=== PATIENT | female | born 1930 | race Two or more races ===

== ENCOUNTER → 2019-05-07 | Day surgery (SDC) | payer MEDICARE ==
[~2019-05-07] MED LIST: ASPIR 8181 MG PO; BUPIVACAINE 0.25%/EPI 30ML SDV INJ ONE; CALCIUM 600 +1 EAC2 PO; CLOPIDOGREL75 MG PO; COLESTIPOL PO; DEXAMETHASONE SOD PHOS INJ 4 MG/ML VIAL ONE; DIOVAN HCT 3201 EAC1 PO; FENTANYL CITRATE/PF 100MCG/2 ML INJ ONE; GABAPENTIN300 MG PO; LIDOCAINE HCL 2% JELLY 5 ML TUBE ONE; LIDOCAINE HCL 2% LOCAL INJ 5 ML SDV VIAL INJ ONE; MELATONIN5 M2 PO; NAPROSYN500 MG PO; NORCO 5-325 TA1 EACH PO; ONDANSETRON HCL INJ 2MG/ML 2ML 2 MG/ML VIAL ONE; PROPOFOL IV EMULSION 10 MG/ML 20 ML VIAL ONE; RANITIDINE HCL150 MG PO; ROCURONIUM BROMIDE 10 MG/ML 5ML VIAL ONE; SEVOFLURANE INHAL SOLN 250 ML PEN BTL ONE; SIMVASTATIN40 MG PO
--- OUTSIDE RECORDS SUMMARY | 2019-05-07 06:55 | XMS REPORT ---
Author Author [facility] Address Unknown Phone Unavailable Care Team Providers Care Business Taxes Specialist Name Role Phone Unavailable Unavailable Payers Payer Name Policy Type Policy Number Effective Date Expiration Date Problems This patient has no known problems. Allergies, Adverse Reactions, Alerts Allergy Name Allergy Type Status Severity Reaction(s) Onset Date Inactive Date Treating Clinician Comments Sulfa (Sulfonamide Antibiotics) DA Active MO 2012-08-17 00:00:00 METAL DA Active MO 2012-08-14 00:00:00 Medications This patient has no known medications. Results Test Description Test Time Test Comments Text Results Atomic Results Result Comments BREAST,BIOPSY 2019-01-22 13:47:00 RUN DATE: 01/22/19 [facility] PAGE 1 RUN TIME: 1347 Specimen Inquiry RUN USER: INTERFACE PATIENT: MOEEMILEE LOC: THANIA U #: [id number] AGE/SX: 88/F ROOM: RE01/20/19[facility] DR: Lisandro Wheeler MD : 32 BED: DIS: STATUS: PRE REF TLOC: SPEC #: [id number] RECD: 01/21/19 STATUS: MAEVE RE #: [id number] FELISHA: 01/20/19-1719 [facility] DR: Siena Mejia MD ENTERED: 01/21/19 SP TYPE: BX BREAST OTHR DR: ORDERED: GROSS PROCEDURES: GROSS (01/22/191120) TISSUES: 1. BREAST CORE BIOPSY - 12 O'CLOCK SITE 1 2. AXILLARY LYMPH NODE, NOS - CORE BX CLINICAL HISTORY COLLECTION DATE: 01/20/19 RIGHT BREAST 12 O'CLOCK MASS AND RIGHT BREAST AXILLARY NODE COMMENT Microscopic evaluation of right breast mass shows stromal fibrosis and foci of mild chronic inflammatory infiltrates including lymphocytes and plasma cells. Recommend clinical and radiologic correlation and follow-up as clinically indicated. Sections of right axillary node shows benign lymphoid tissue with a few pigmented macrophages. No malignancy is present. FINAL DIAGNOSIS Breast mass at 12 o'clock, core biopsy: BENIGN BREAST TISSUE WITH STROMAL FIBROSIS AND FOCAL MILD CHRONIC INFLAMMATION, see comment NO MICROCALCIFICATION, ATYPIA OR MALIGNANCY IDENTIFIED Right axillary node, core biopsy: BENIGN LYMPHOID TISSUE NEGATIVE FOR MALIGNANCY FA/marcella Middleton [id number] CONTINUED ON NEXT PAGE --RUN DATE: 01/22/19 [facility] PAGE 2 RUN TIME: 1347 Specimen Inquiry RUN USER: INTERFACE SPEC #: [id number] PATIENT: EMILEE ROSA #[id number] (Continued) MACROSCOPIC The first specimen is received in formalin, labeled w ith the patient's name, and identified as "breast mass at 12 o'clock". It consists of three cores of sheikh-yellow and white soft tissue measuring 0.7, 1.5, and 1.6 cm in length and 0.1 cm in diameter, entirely submitted as (1). The second specimen is received in formalin, labeled with the patient's name, and identified as "right axillary node biopsy". It consists of two sheikh- yellow and red-brown core biopsies measuring 0.7 and 1.0 cm, entirely submitted as (2). GROSS PERFORMED AT [facility] [address] [place] [address] ([phone] MICROSCOPIC All of the stains, including any controls performed, stain appropriately. MICROSCOPIC PERFORMED AT [facility] [address] [place] [address] ([phone] PERFORMING SITE Diagnosis performed at: [facility], [place] [address] [place] [address] Signed SIGNATURE ON FILE Ana María Modi MD 01/22/19 1347 END OF REPORT
--- OUTSIDE RECORDS SUMMARY | 2019-05-07 06:55 | XMS REPORT ---
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 Active Problem Atherosclerosis of viejas artery of left lower extremity with rest pain I70.222 Active Problem Chronic kidney disease, stage IV (severe) N18.4 Active Problem Hypertensive heart disease, benign, without CHF I11.9 Active Problem 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 [id number] Orally QD Active TAKE 1 TABLET BY MOUTH EVERY DAY Results No Known Results Summary Purpose [employer] Submission
--- OUTSIDE RECORDS SUMMARY | 2019-05-07 06:55 | XMS REPORT | Continuity of Care Document ---
Author Author [employer] Address Unknown Phone Unavailable Care Team Providers Care Pipe Machine Operator Name Role Phone [employer] Unavailable Unavailable Problems Problem Status Onset Date Classification Date Reported Comments Source Smoker Active Problem 07/08/2018 Mohamed O Brittney Carotid atherosclerosis, unspecified laterality Active Problem 07/08/2018 Mohamed O Jeroutae Hypercholesteremia Active Problem 07/08/2018 Mohamed O Jeroudi Abnormal EKG Active Problem 07/08/2018 Mohamed O Jeroudi Shortness of breath Active Problem 07/08/2018 Mohamed O Jeroudi Atherosclerosis of [place] artery of right lower extremity with intermittent claudication Active Problem 07/08/2018 Mohamed O Jeroudi Atherosclerosis of [place] artery of left lower extremity with rest pain Active Problem 07/08/2018 Mohamed O Jerterrencedi Chronic kidney disease, stage IV Active Problem 07/08/2018 Mohamed O Jeroudi Hypertensive heart disease, benign, without CHF Active Problem 07/08/2018 Mohamed O Jeroudi Atherosclerosis of [place] artery of both lower extremities with intermittent claudication Active Problem 07/08/2018 Mohamed O Jeroudi Atherosclerotic heart disease of [place] coronary artery without angina pectoris Active Problem 07/08/2018 Mohamed O Jeroudi Coronary artery disease involving southern ute coronary artery of southern [place] heart with angina pectoris Active Problem 07/08/2018 Mohamed O Jeroudi Medications Medication Details Route Status Patient Instructions Ordering Provider Order Date Source Clopidogrel Bisulfate TAKE 1 TABLET BY MOUTH EVERY DAY Orally Active 75 Orally QD Jeroudi Mohamed O Jeroudi Allergies, Adverse Reactions, Alerts No Known Medication Allergies Immunizations No Data Provided for This Section Results No Data Provided for This Section Pathology Reports No Data Provided for This Section Diagnostic Reports No Data Provided for This Section Consultation Notes No Data Provided for This Section Discharge Summaries No Data Provided for This Section History and Physicals No Data Provided for This Section Vital Signs No Data Provided for This Section Encounters No Data Provided for This Section Procedures No Data Provided for This Section Assessment and Plan No Data Provided for This Section Plan of Care No Data Provided for This Section Social History No Data Provided for This Section Family History No Data Provided for This Section Advance Directives No Data Provided for This Section Functional Status No Data Provided for This Section
[2019-05-07 08:25] LABS: BASOPHILS # (AUTO) 0.1 (0.0-0.1); BASOPHILS % 0.6 % (0.0-1.0); EOSINOPHILS # (AUTO) 0.3 (0.0-0.4); EOSINOPHILS % 4.1 % (0.0-6.0); HEMATOCRIT 36.2 % (34.2-44.1); HEMOGLOBIN 12.5 g/dL (12.0-16.0); LYMPHOCYTES % 25.5 % (18.0-39.1); MEAN CORPUSCULAR HEMOGLOBIN 32.1 pg (28-32); MEAN CORPUSCULAR HGB CONC 34.5 g/dL (31-35); MEAN CORPUSCULAR VOLUME 92.8 fL (81-99); MONOCYTES # (AUTO) 0.8 (0.2-0.8); MONOCYTES % 9.9 % (4.4-11.3); NEUTROPHILS # (AUTO) 4.8 (2.1-6.9); NEUTROPHILS % 59.5 % (38.7-80.0); PLATELET COUNT 271 x10e3/uL (140-360)
[2019-05-07 08:46] LABS: ANION GAP 15.5 mmol/L (8-16); CALCIUM 10.2 mg/dL (8.4-10.2); CREATININE, SERUM 1.5 mg/dL (0.57-1.11); POTASSIUM 4.5 mmol/L (3.5-5.1)
--- NOTE | 2019-05-07 09:08 | Diagnostic Imaging Report ---
EXAMINATION: CHEST SINGLE (PORTABLE) INDICATION: Pre-operative. COMPARISON: None FINDINGS: TUBES and LINES: None. LUNGS: Lungs are well inflated. Mild right interstitial opacities, which may reflect age-related changes. Patchy opacities at the right lung base, likely atelectasis. No evidence of lobar pneumonia or pulmonary edema. PLEURA: No pleural effusion or pneumothorax. HEART AND MEDIASTINUM: The cardiomediastinal silhouette is unremarkable. There are atherosclerotic calcifications within the aorta. BONES AND SOFT TISSUES: No acute osseous abnormality. Partially seen cervical spine fixsation hardware. Calcific tendinopathy of bilateral rotator cuffs. UPPER ABDOMEN: No free air under the diaphragm. IMPRESSION: No acute radiographic abnormality. Signed by: Dr. Kade Emerson MD on 05/07/2019 9:04 AM
[2019-05-07 11:18] VITALS: BP 161/78
--- NOTE | 2019-05-07 13:09 | Operative Report ---
DATE OF PROCEDURE: 05/07/2019 SURGEON: Canelo Jacob MD PREOPERATIVE DIAGNOSIS: Right breast mass. POSTOPERATIVE DIAGNOSIS: Right breast mass. OPERATION PERFORMED: Right partial mastectomy. METAL CONTROL WORKER: CARRIE Rothman. ANESTHESIA: General. COMPLICATIONS: None. ESTIMATED BLOOD LOSS: Minimal. PROCEDURE IN DETAIL: With the patient lying in bed in the supine position under good general anesthesia, the right breast was prepped with Betadine solution and draped in the usual manner. The area of the upper right areola was then infiltrated with 0.25% Marcaine. An incision was made in the periareolar skin and this areola was then slowly and carefully lifted and from the underlying tissues. The mass that was contained at around the 10 o'clock position was then totally and completely encircled and removed and sent for pathological examination. The whole area was then thoroughly irrigated. Perfect hemostasis was ascertained. The breast tissue was then reapproximated with interrupted sutures of 2-0 chromic and the skin was closed with interrupted vertical mattress sutures of 4-0 nylon. A dressing was applied. The sponge, lap, and needle count was correct. The patient tolerated the procedure well and returned to the recovery room in stable condition. MD SANJUANITA EasonR/SABRINAL /[id number]
== END | disposition home or self-care (01) ==
LOC: OR 06:51
PROVIDERS: ATTEND Surgery
DX: D24.1 Benign neoplasm of right breast (principal); K21.9 Gastro-esophageal reflux disease without esophagitis; M19.90 Unspecified osteoarthritis, unspecified site; I25.10 Atherosclerotic heart disease of native coronary artery without angina pectoris; I10 Essential (primary) hypertension; J41.0 Simple chronic bronchitis; Z88.0 Allergy status to penicillin; M54.2 Cervicalgia; F17.210 Nicotine dependence, cigarettes, uncomplicated; Z88.2 Allergy status to sulfonamides; Z91.048 Other nonmedicinal substance allergy status; Z79.82 Long term (current) use of aspirin; Z79.02 Long term (current) use of antithrombotics/antiplatelets
CPT/HCPCS: 19301; 36415; 71045; 80048; 85025; 88305; 93005; J1100; J2001 ×2; J2405; J2704; J3010